=== PATIENT | male | born 1955 | race Caucasian/White ===

== ENCOUNTER 2020-12-18 10:50 | Emergency (ER) | payer MEDICARE, OTHER ==
[~2020-12-18] VITALS: Ht 167.6 cm; Wt 78.0 kg
[2020-12-18 11:11] VITALS: BP 149/82
--- NOTE | 2020-12-18 11:29 | NUR ---
Patient ambulated with steady gait to bed 1.
--- NOTE | 2020-12-18 12:00 | NUR ---
65 y/o M BIB self from home c/o chest pain, dry cough, SOB x 2-3 days. Patient A&Ox4, ambulatory, reports pain to general chest region 5/10, pressure/intermittent, non-radiating. Patient states ambulating makes chest pain better. Denies any medications prior to arrival; denies nausea, vomiting, diarrhea, headache, blurry vision, fever, chills, dysuria, abdominal pain. Cap refill immediate; skin warm/pink/dry. Pt placed into a gown and tooler. HR 53 strong/regular. SpO2 99% on room air; Lung sounds CTA. Bed locked in lowest position, side rails x 1, call light in reach. PMH/Sx/Meds: Denies NKA
--- NOTE | 2020-12-18 13:00 | NUR ---
Hamida steel swab collected, walked to lab and handed to CPT Hawk
--- NOTE | 2020-12-18 13:14 | NUR ---
Lab at bedside
[2020-12-18 13:38] LABS: BASOPHILS # (AUTO) 0.1 K/uL (0.00-0.22); EOSINOPHILS # (AUTO) 0.2 K/uL (0-0.4); HEMOGLOBIN 16.2 g/dL (12.0-18.0); LYMPHOCYTES # (AUTO) 1.2 K/uL (2.0-11.5); MEAN CORPUSCULAR HEMOGLOBIN 33 pg (27-31); MEAN CORPUSCULAR HGB CONC 34 g/dL (33-37); MONOCYTES # (AUTO) 0.5 K/uL (0.8-1.0); NEUTROPHILS # (AUTO) 3.3 K/uL (1.8-7.7); WHITE BLOOD COUNT (AUTO) 5.2 K/uL (4.8-10.8)
[2020-12-18 14:00] LABS: BASOPHILS % (AUTO) 1.1 % (0.0-2.0); HEMATOCRIT 47.8 % (36-52); LYMPHOCYTES % (AUTO) 22.8 % (20.5-51.1); MEAN CORPUSCULAR VOLUME 96.2 fL (80-94); MONOCYTES % (AUTO) 9.2 % (1.7-9.3); NEUTROPHILS % (AUTO) 62.9 % (42.2-75.2); PLATELET COUNT (AUTO) 184 K/uL (140-450); RED BLOOD CELL COUNT(AUTO) 4.97 MIL/uL (4.20-6.10); RED CELL DISTRIBUTION WIDTH 13.5 % (11.6-13.7)
[2020-12-18 14:08] LABS: ALBUMIN 3.8 g/dL (3.4-5.0); ANION GAP 14.2 (8-16); CARBON DIOXIDE 25.8 mmol/L (21-32); CREATININE 0.9 mg/dL (0.6-1.3); TOTAL BILIRUBIN 0.6 mg/dL (0.0-1.0)
--- NOTE | 2020-12-18 14:23 | NUR ---
patient resting in position of comfort. burn out tender lace remains in place. Denies pain. Bed locked in lowest position, side rails x 1, call light in reach.
[2020-12-18] MEDS ORDERED: ALBU0.0912 INH ×2 (15:40→16:42)
[2020-12-18 16:00] VITALS: BP 127/65
--- NOTE | 2020-12-18 16:43 | NUR ---
Patient discharged with v/s stable. Written and verbal after care instructions given and explained. Patient alert, oriented and verbalized understanding of instructions. Ambulatory with steady gait. All questions addressed prior to discharge. ID band removed. Patient advised to follow up with PMD. Rx of Albuterol sulfate inhaler given. Patient educated on indication of medication including possible reaction and side effects. Opportunity to ask questions provided and answered.
== END 2020-12-18 16:43 | disposition home or self-care (01) ==
LOC: MED 10:50
DX: R05.9 Cough, unspecified (principal); Z20.822 Contact with and (suspected) exposure to COVID-19; R06.02 Shortness of breath; R00.1 Bradycardia, unspecified; F17.200 Nicotine dependence, unspecified, uncomplicated; Z79.899 Other long term (current) drug therapy; Z98.890 Other specified postprocedural states; Z71.6 Tobacco abuse counseling
CPT/HCPCS: 36415; 71045; 80053; 83880; 84484; 85025; 87426; 99285; Q0092; 93005